=== PATIENT | female | born 1980 ===

== ENCOUNTER 2021-04-10 06:12 | Day surgery (SDC) | payer OTHER ==
[~2021-04-10 06:12] MED LIST: SYNTHROID125 MCG PO
== END 2021-04-10 13:50 | disposition home or self-care (01) ==
LOC: CIR.AMB 06:12
PROVIDERS: ATTEND Obstetrics & Gynecology
DX: Z30.2 Encounter for sterilization (principal); Z20.822 Contact with and (suspected) exposure to COVID-19